=== PATIENT | male | born 1985 | race Caucasian/White ===

== ENCOUNTER 2023-08-17 15:45 | Outpatient (CLI) | payer OTHER, SELFPAY | END 2023-08-17 15:46 | disposition home or self-care (01) | PROVIDERS: PCP Family Medicine; Visit Provider Family Medicine | DX: Z13.220 Encounter for screening for lipoid disorders (principal); Z13.228 Encounter for screening for other metabolic disorders; Z13.0 Encounter for screening for diseases of the blood and blood-forming organs and certain disorders involving the immune mechanism | CPT/HCPCS: 80048; 80061; 85025 ==

== ENCOUNTER 2024-08-15 15:15 | Outpatient (RCR) | payer OTHER, SELFPAY | END 2024-10-05 13:38 | disposition home or self-care (01) | PROVIDERS: PCP Family Medicine; Visit Provider Podiatrist | DX: M72.2 Plantar fascial fibromatosis (principal); M24.573 Contracture, unspecified ankle; M25.572 Pain in left ankle and joints of left foot; M62.81 Muscle weakness (generalized); Z51.89 Encounter for other specified aftercare | CPT/HCPCS: 97110; 97140; 97161 ==